=== PATIENT | female | born 1950 | race Caucasian/White ===

== ENCOUNTER 2019-05-24 17:52 | Emergency (ER) | payer BC, MEDICARE ==
[~2019-05-24] VITALS: Ht 160 cm; Wt 68.0 kg
[2019-05-24 18:09] VITALS: BP 137/78
--- NOTE | 2019-05-24 18:09 | NUR ---
PT BIB PA FROM STREET C/O FOREHEAD LAC S/P SLIP AND FALL, PT IS AAOX3, NOT IN RESPIRATORY DISTRESS, HOOKED TO MONITOR, KEPT RESTED AND COMFORTABLE, WILL CONTINUE TO MONITOR.
--- NOTE | 2019-05-24 18:18 | NUR ---
RENEA SILVESTRE AT BEDSIDE FOR EVAL.
--- NOTE | 2019-05-24 18:40 | NUR ---
PT IS WHEELED TO CT SCAN VIA [facility].
[2019-05-24] MEDS ORDERED: LIDOCAINE 1%-EPI 1:100,000 20 ML VIAL ONE (19:06)
--- NOTE | 2019-05-24 19:15 | NUR ---
SUTURING DONE BY ERNEA PETERSON
--- NOTE | 2019-05-24 19:19 | NUR ---
REPORT GIVEN TO NATE DOTSON FOR ROLANDO.
--- NOTE | 2019-05-24 19:49 | NUR ---
Patient discharged to home in stable condition. Written and verbal after care instructions given. Patient verbalizes understanding of instruction.
== END 2019-05-24 19:52 | disposition home or self-care (01) ==
LOC: ER 17:57
DX: S01.81XA Laceration without foreign body of other part of head, initial encounter (principal); M54.2 Cervicalgia; M25.552 Pain in left hip; G40.909 Epilepsy, unspecified, not intractable, without status epilepticus; Z98.890 Other specified postprocedural states; W01.0XXA Fall on same level from slipping, tripping and stumbling without subsequent striking against object, initial encounter; Y93.89 Activity, other specified; Y92.481 Parking lot as the place of occurrence of the external cause; Y99.8 Other external cause status
CPT/HCPCS: 12011; 70450; 72125; 73503; 99284; J3490; 73502